=== PATIENT | female | born 1980 | race African-American/Black ===

== ENCOUNTER 2017-01-23 21:44 | Emergency (ER) | payer OTHER ==
[~2017-01-23] VITALS: Ht 160 cm; Wt 84.3 kg
[~2017-01-23 21:44] MED LIST: HYDROCODON-ACE1 EAC7 PO; IBUPROFEN800 MG PO; NORCO 5/3251 TABLET PO; XARELTO1 EACH PO
[2017-01-23 22:38] LABS: HEMATOCRIT 33.5 % (36.0-46.0); MCH 26.6 PG (29.0-34.0); MCHC 32.8 G/DL (30.0-36.0); MCV 80.9 FL (83-99); MEAN PLAT.VOLUME 11.3 uM^3 (9.5-12.4); PLATELET COUNT 201 K/uL (156-360); RBC DIS.WIDTH-SD 41.3 % (39-53); RED BLOOD COUNT 4.14 M/uL (3.80-5.20); WHITE BLOOD COUNT 7.6 K/uL (4.1-10.2)
[2017-01-23 22:45] LABS: PROTHROMBIN TIME 11.1 SEC (10.2-12.9)
[2017-01-23 22:47] LABS: PTT 27.3 SEC (25-37)
[2017-01-23 22:50] LABS: CHLORIDE 105 mEq/L (99-109); SODIUM 141 mEq/L (136-147)
[2017-01-23 22:52] LABS: GLUCOSE 81 mg/dL (70-99)
[2017-01-23 22:53] LABS: ANION GAP 8 MEQ/L (2-14)
[2017-01-23 22:55] LABS: GFR ESTIMATE (CALCULATED) > 59 mL/min/
[2017-01-23 22:56] LABS: UREA NITROGEN (BUN) 9 mg/dL (9-23)
[2017-01-23 23:02] LABS: TROP-I INTERPRETATION NEGATIVE; TROPONIN-I < 0.01 ng/mL (0.0-0.30)
[2017-01-24 01:10] LABS: TROP-I INTERPRETATION NEGATIVE; TROPONIN-I < 0.01 ng/mL (0.0-0.30)
[2017-01-24 01:40] VITALS: BP 112/70
== END 2017-01-24 01:56 | disposition home or self-care (01) ==
LOC: EME 21:44
PROVIDERS: Emergency Medicine
DX: R07.89 Other chest pain (principal); M79.662 Pain in left lower leg; Z86.718 Personal history of other venous thrombosis and embolism
CPT/HCPCS: 71020; 80048; 84484; 85027; 85379; 85610; 85730; 93005; 93971; 99281; 99284